=== PATIENT | male | born 1970 | race Hispanic/Latino ===

== ENCOUNTER 2018-02-03 15:40 | Emergency (ER) | payer OTHER ==
[2018-02-03] MEDS ORDERED: HYDROCODONE/APAP 5/325 MG TAB ONE (16:15)
--- NOTE | 2018-02-03 17:31 | ER ---
Nurse's Notes [facility] Name: Glenroy Kang Age: 47 yrs Sex: Male : 1970 Arrival Date: 02/03/2018 Time: 15:43 Bed 19 Private MD: None, None Diagnosis: Pain in left knee;Pain in right knee Presentation: 02/03 15:45 Presenting complaint: Patient states: couple of night ago, i started feeling pain on hj both my legs, more on the back of my knees, my doctor told me to come to the ED to check for blood clot; reports recent back surgery last December 2017; denies SOB;. Transition of care: patient was not received from another setting of care. Onset of symptoms was February 03, 2018. Risk Assessment: Do you want to hurt yourself or someone else? Patient reports no desire to harm self or others. Initial Sepsis Screen: Does the patient meet any 2 criteria? No. Patient's initial sepsis screen is negative. Does the patient have a suspected source of infection? No. Patient's initial sepsis screen is negative. Care prior to arrival: None. 15:45 Method Of Arrival: Ambulatory 15:45 Acuity: RICH 4 hj Triage Assessment: 15:49 General: Appears in no apparent distress. uncomfortable, Behavior is calm, cooperative, hj appropriate for age. Pain: Complains of pain in right leg and left leg Pain currently is 6 out of 10 on a pain scale. Historical: - Allergies: 15:49 No Known Allergies; hj - Home Meds: 15:49 metaxalone 800 mg oral tab 1 tab 3-4 times daily [Active]; acetaminophen-codeine 300-30 hj mg Oral tab 1 tab every 6 hours [Active]; - PMHx: 15:49 Kidney stones; hj - PSHx: 15:49 back surgery; hj - Immunization history:: Adult Immunizations up to date. - Social history:: Smoking status: Patient uses tobacco products, smokes one-half pack cigarettes per day, Patient/guardian denies using alcohol. - Ebola Screening: : Patient negative for fever greater than or equal to 101.5 degrees Fahrenheit, and additional compatible Ebola Virus Disease symptoms Patient denies exposure to infectious person Patient denies travel to an Ebola-affected area in the 21 days before illness onset. Screenin:49 Abuse screen: Denies threats or abuse. Denies injuries from another. Nutritional hj screening: No deficits noted. Tuberculosis screening: No symptoms or risk factors identified. Fall Risk None identified. Assessment: 15:56 General: Appears uncomfortable, Behavior is calm, cooperative. Pain: Complains of pain mg2 in left leg and right leg Pain does not radiate. Pain currently is 6 out of 10 on a pain scale. Quality of pain is described as aching, Pain began 2-3 days ago. Is intermittent, Alleviated by rest, Aggravated by increased activity, Noted to be moaning. Neuro: Level of Consciousness is awake, alert, obeys commands, Oriented to person, place, time, situation. Cardiovascular: Capillary refill < 3 seconds Patient's skin is warm and dry. Respiratory: Airway is patent Respiratory effort is even, unlabored, Respiratory pattern is regular, symmetrical. GI: No signs and/or symptoms were reported involving the gastrointestinal system. : No signs and/or symptoms were reported regarding the genitourinary system. EENT: No signs and/or symptoms were reported regarding the EENT system. Derm: Skin is intact, Skin is pink, warm \T\ dry. normal. Musculoskeletal: Reports pain in left leg and right leg since 2 days. 16:30 Reassessment: Patient appears in no apparent distress at this time. Patient is alert, em oriented x 3, equal unlabored respirations, skin warm/dry/pink. request to take home medication Skelaxin 800 mg, DARIEL Shepard notified. 17:30 Reassessment: Patient appears in no apparent distress at this time. Patient is alert, em oriented x 3, equal unlabored respirations, skin warm/dry/pink. Patient states feeling better. Vital Signs: 15:50 BP 125 / 76; Pulse 82; Resp 18; Temp 97.8(O); Pulse Ox 98% on R/A; Weight 94.35 kg; Height 5 ft. 10 in. (177.80 cm); Pain 6/10; 16:50 BP 114 / 82; Pulse 71; Resp 18; Pulse Ox 99% on R/A; em 17:55 BP 109 / 68; Pulse 78; Resp 16; Pulse Ox 99% on R/A; Pain 3/10; em 15:50 Body Mass Index 29.84 (94.35 kg, 177.80 cm) ED Course: 15:43 Patient arrived in ED. mr 15:43 None, None is Private Physician. mr 15:47 Triage completed. hj 15:48 Gladys Bragg NP is PHCP. pm1 15:48 David Benson MD is Attending Physician. pm1 15:49 Arm band placed on left wrist. hj 15:50 Patient has correct armband on for positive identification. Bed in low position. Call light in reach. Side rails up X 1. 15:52 Irineo Adams LVN is Primary Nurse. em 16:47 Ultrasound completed. Patient tolerated well. Notified BOTTOM STEEP TENDER/PA gladys. sg3 17:32 No provider procedures requiring assistance completed. Patient did not have IV access em during this emergency room visit. Administered Medications: 16:24 Drug: [place] 5 mg-325 mg 1 tabs Route: PO; em 17:55 Follow up: Response: No adverse reaction; Pain is decreased em Outcome: 17:31 Discharge ordered by MD. pm1 17:59 Discharged to home ambulatory. em 17:59 Condition: good 17:59 Discharge instructions given to patient, Instructed on discharge instructions, follow up and referral plans. Demonstrated understanding of instructions, follow-up care. 18:00 Patient left the ED. em Signatures: Dispatcher [employer] EDMI Fbay Mancilla mr Irineo Adams LVN LVN em Karthik Vicente, HEATHER RN Gladys Bragg NP BOTTOM STEEP TENDER pm1 Kathryn Serna sg3 Chet Wills RN RN mg2 Corrections: (The following items were deleted from the chart) 17:02 17:02 In radiology for Extrem Venous W Compression Jordon+US.[email or web address]. EDMS sg3
--- NOTE | 2018-02-03 17:31 | EDPHYS ---
Physician Documentation [facility] Name: Glenroy Kang Age: 47 yrs Sex: Male : 1970 Arrival Date: 02/03/2018 Time: 15:43 Bed 19 Private MD: None, None ED Physician David Benson HPI: 02/03 16:11 This 47 yrs old Male presents to ER via Ambulatory with complaints of pm1 Bilateral Leg Pain. 16:11 The patient presents with pain. The complaints affect the posterior aspect of right pm1 knee and left knee. Context: The problem was sustained at home, resulted from an unknown cause, the patient can fully bear weight, the patient is able to ambulate, Problem is a result from a previous injury: No. Onset: The symptoms/episode began/occurred 2 day(s) ago. Modifying factors: The symptoms are alleviated by nothing. the symptoms are aggravated by movement. Associated signs and symptoms: Pertinent negatives calf tenderness, fever, numbness, swelling, tingling, weakness. Treatment prior to arrival includes: no previous treatment. Severity of symptoms: in the emergency department the symptoms are unchanged. The patient has not experienced similar symptoms in the past. Patient with back surgery on January 15, 2018. Patient with bilateral popliteal knee pain for the past two days. Patient contacted the surgeon and was told by the PA to report to the ER for ultrasound to rule out DVT. Historical: - Allergies: 15:49 No Known Allergies; hj - Home Meds: 15:49 metaxalone 800 mg oral tab 1 tab 3-4 times daily [Active]; acetaminophen-codeine 300-30 hj mg Oral tab 1 tab every 6 hours [Active]; - PMHx: 15:49 Kidney stones; hj - PSHx: 15:49 back surgery; hj - Immunization history:: Adult Immunizations up to date. - Social history:: Smoking status: Patient uses tobacco products, smokes one-half pack cigarettes per day, Patient/guardian denies using alcohol. - Ebola Screening: : Patient negative for fever greater than or equal to 101.5 degrees Fahrenheit, and additional compatible Ebola Virus Disease symptoms Patient denies exposure to infectious person Patient denies travel to an Ebola-affected area in the 21 days before illness onset. ROS: 16:11 Constitutional: Negative for fever, chills, and weight loss, Eyes: Negative for injury, pm1 pain, redness, and discharge, ENT: Negative for injury, pain, and discharge, Neck: Negative for injury, pain, and swelling, Cardiovascular: Negative for chest pain, palpitations, and edema, Respiratory: Negative for shortness of breath, cough, wheezing, and pleuritic chest pain, Abdomen/GI: Negative for abdominal pain, nausea, vomiting, diarrhea, and constipation. 16:11 Back: Negative for injury. Positive for post surgical pain, : Negative for injury, bleeding, discharge, and swelling. 16:11 Skin: Negative for injury, rash, and discoloration, Neuro: Negative for headache, weakness, numbness, tingling, and seizure. 16:11 MS/extremity: Positive for pain, of the posterior aspect of right knee and left knee, Negative for decreased range of motion, deformity. Exam: 16:15 Constitutional: This is a well developed, well nourished patient who is awake, alert, pm1 and in no acute distress. Head/Face: Normocephalic, atraumatic. Eyes: Pupils equal round and reactive to light, extra-ocular motions intact. Lids and lashes normal. Conjunctiva and sclera are non-icteric and not injected. Cornea within normal limits. Periorbital areas with no swelling, redness, or edema. ENT: Nares patent. No nasal discharge, no septal abnormalities noted. Tympanic membranes are normal and external auditory canals are clear. Oropharynx with no redness, swelling, or masses, exudates, or evidence of obstruction, uvula midline. Mucous membranes moist. Neck: Trachea midline, no thyromegaly or masses palpated, and no cervical lymphadenopathy. Supple, full range of motion without nuchal rigidity, or vertebral point tenderness. No Meningismus. Chest/axilla: Normal chest wall appearance and motion. Nontender with no deformity. No lesions are appreciated. Cardiovascular: Regular rate and rhythm with a normal S1 and S2. No gallops, murmurs, or rubs. No pulse deficits. Respiratory: Lungs have equal breath sounds bilaterally, clear to auscultation and percussion. No rales, rhonchi or wheezes noted. No increased work of breathing, no retractions or nasal flaring. Abdomen/GI: Soft, non-tender, with normal bowel sounds. No distension or tympany. No guarding or rebound. No evidence of tenderness throughout. Back: No spinal tenderness. No costovertebral tenderness. Full range of motion. Skin: Warm, dry with normal turgor. Normal color with no rashes, no lesions, and no evidence of cellulitis. MS/ Extremity: Pulses equal, no cyanosis. Neurovascular intact. Full, normal range of motion. 16:15 Neuro: Orientation: is normal, Motor: moves all fours, strength is normal, strength is 5/5 in all extremities, Sensation: is normal, no obvious gross deficits, Babinski testing is normal, bilaterally. Vital Signs: 15:50 BP 125 / 76; Pulse 82; Resp 18; Temp 97.8(O); Pulse Ox 98% on R/A; Weight 94.35 kg; hj Height 5 ft. 10 in. (177.80 cm); Pain 6/10; 16:50 BP 114 / 82; Pulse 71; Resp 18; Pulse Ox 99% on R/A; em 17:55 BP 109 / 68; Pulse 78; Resp 16; Pulse Ox 99% on R/A; Pain 3/10; em 15:50 Body Mass Index 29.84 (94.35 kg, 177.80 cm) hj MDM: 15:51 Patient medically screened. pm1 17:24 Data reviewed: vital signs. Data interpreted: Pulse oximetry: on room air is 98 %. pm1 Interpretation: normal. Counseling: I had a detailed discussion with the patient and/or guardian regarding: the historical points, exam findings, and any diagnostic results supporting the discharge/admit diagnosis, radiology results, the need for outpatient follow up, to return to the emergency department if symptoms worsen or persist or if there are any questions or concerns that arise at home. 17:24 ED course: U/S negative for DVT. Patient's bilateral knee pain improved with pm1 medications given in the ER. Patient currently not taking his Skelaxin and Tylenol #3 as directed. He is taking less. Primarily concerned about getting dependent on the medications. 02/03 15:56 Order name: Extrem Venous W Compression Jordon US; Complete Time: 17:51 pm1 Administered Medications: 16:24 Drug: [place] 5 mg-325 mg 1 tabs Route: PO; em 17:55 Follow up: Response: No adverse reaction; Pain is decreased em Disposition: 02/03/18 17:31 Discharged to Home. Impression: Pain in left knee, Pain in right knee. - Condition is Stable. - Discharge Instructions: Knee Pain. - Medication Reconciliation Form, Thank You Letter, Prescription Opioid Use form. - Follow up: Emergency Department; When: As needed; Reason: Worsening of condition. Follow up: Private Physician; When: 2 - 3 days; Reason: Recheck today's complaints, Continuance of care, Re-evaluation by your physician. - Problem is new. - Symptoms have improved. Addendum: 02/05/2018 09:22 Co-signature as Attending Physician, David Benson MD I agree with the assessment and c laird plan of care. Signatures: Dispatcher [employer] EDTX David Benson MD MD cha Munoz, Edgar, REEL OPERATOR REEL OPERATOR Karthik Reed, RN RN Devyn Best, GOLD RECLAIMER GOLD RECLAIMER pm1 Corrections: (The following items were deleted from the chart) 02/03 18:00 17:31 02/03/2018 17:31 Discharged to Home. Impression: Pain in left knee; Pain in right em knee. Condition is Stable. Forms are Medication Reconciliation Form, Thank You Letter, Antibiotic Education, Prescription Opioid Use. Follow up: Emergency Department; When: As needed; Reason: Worsening of condition. Follow up: Private Physician; When: 2 - 3 days; Reason: Recheck today's complaints, Continuance of care, Re-evaluation by your physician. Problem is new. Symptoms have improved. pm1
--- NOTE | 2018-02-03 17:48 | RAD REPORT ---
EXAM DESCRIPTION: VASExtrem Venous W Compress Bil02/03/2018 5:02 pm CLINICAL HISTORY: Bilateral leg pain COMPARISON: none FINDINGS: The common femoral, superficial femoral, popliteal and posterior tibial veins bilaterally are compressible and demonstrate augmentation. Doppler demonstrates good flow. IMPRESSION: No evidence of deep venous thrombosis involving either lower extremity.
== END 2018-02-03 18:00 | disposition home or self-care (01) ==
LOC: ER 15:40
DX: M25.561 Pain in right knee (principal); F17.210 Nicotine dependence, cigarettes, uncomplicated
CPT/HCPCS: 93970; 99283

== ENCOUNTER 2018-08-26 22:02 | Observation (INO) | payer OTHER, SELFPAY ==
[2018-08-26 23:05] LABS: Absolute Lymphocytes (CBC) 2.8 K/uL (0.7-4.9); Absolute Monocytes 0.9 K/uL (0.1-1.3); Absolute Neutrophil 4.4 K/uL (1.8-8.0); Basophils % 1.2 % (0-1.3); Eosinophils % 3.2 % (0-4.4); Hematocrit 46.3 % (39.6-49.0); Lymphocytes % 32.9 % (15.3-44.8); MPV 9.3 fL (7.6-11.3); Monocytes % 10.7 % (3.3-12.3); RBC Red Blood Cell Count 5.23 M/uL (4.33-5.43)
[2018-08-26 23:09] LABS: Protime INR 0.97
[2018-08-26] MEDS ORDERED: ONDANSETRON 4 MG/2 ML VIAL ONE (23:09)
[2018-08-26] MEDS ORDERED: FENTANYL CITR 100 MCG/2 ML ONE (23:09)
[2018-08-26] MEDS ORDERED: FAMOTIDINE 20 MG/2 ML VIAL IV ONE (23:10)
[2018-08-26] MEDS ORDERED: NA CHLORIDE 0.9% 1,000 ML ONE (23:10)
[2018-08-26 23:23] LABS: ALT/SGPT 100 U/L (12-78); AST/SGOT 46 U/L (15-37); Albumin 3.7 g/dL (3.4-5.0); Alkaline Phosphatase 127 U/L (45-117); BUN Blood Urea Nitrogen 14 mg/dL (7-18); Bicarbonate 28 mmol/L (21-32); Bilirubin Direct 0.3 mg/dL (0-0.2); Bilirubin Total 0.7 mg/dL (0.2-1.0); Glucose Level 107 mg/dL (74-106); Lipase 177 U/L (73-393); NT PRO-BNP 19 pg/mL (<125); Potassium 3.8 mmol/L (3.5-5.1); Protein, Total 7.2 g/dL (6.4-8.2); Sodium Level 143 mmol/L (136-145); Troponin (Emerg Dept Use Only) < 0.02 ng/mL (0.0-0.045)
--- NOTE | 2018-08-27 00:05 | ER ---
Nurse's Notes [facility] Name: Glenroy Kang Age: 48 yrs Sex: Male : 1970 Arrival Date: 08/26/2018 Time: 22:05 Bed 5 Private MD: Diagnosis: Other chest pain;Cholelithiasis;Cholecystitis Presentation: 08/26 22:05 Presenting complaint: Patient states: that he was eating a sandwich from [facility] and then started to have epigastric pain and sharp chest pain along with nausea, vomiting and shortness of breath. Transition of care: patient was not received from another setting of care. Onset of symptoms was August 26, 2018 at 18:30. Risk Assessment: Do you want to hurt yourself or someone else? Patient reports no desire to harm self or others. Initial Sepsis Screen: Does the patient meet any 2 criteria? No. Patient's initial sepsis screen is negative. Does the patient have a suspected source of infection? No. Patient's initial sepsis screen is negative. Care prior to arrival: None. 22:05 Method Of Arrival: Wheelchair 22:05 Acuity: RICH 3 Historical: - Allergies: 22:25 No Known Allergies; - Home Meds: 22:25 None [Active]; fc - PMHx: 22:25 Kidney stones; - PSHx: 22:25 back surg; - Immunization history:: Last tetanus immunization: up to date Flu vaccine is not up to date. - Social history:: Smoking status: Patient uses tobacco products, cigars, Patient/guardian denies using alcohol, street drugs. - Ebola Screening: : Patient negative for fever greater than or equal to 101.5 degrees Fahrenheit, and additional compatible Ebola Virus Disease symptoms Patient denies exposure to infectious person Patient denies travel to an Ebola-affected area in the 21 days before illness onset. - Family history:: not pertinent. Screenin:24 Abuse screen: Denies threats or abuse. Nutritional screening: No deficits noted. Tuberculosis screening: No symptoms or risk factors identified. Fall Risk None identified. Assessment: 23:30 Reassessment: Patient appears in no apparent distress at this time. Patient and/or aa1 family updated on plan of care and expected duration. Pain level reassessed. Patient is alert, oriented x 3, equal unlabored respirations, skin warm/dry/pink. Pt awaiting CT scan. 08/27 00:35 Reassessment: Patient appears in no apparent distress at this time. Patient and/or aa1 family updated on plan of care and expected duration. Pain level reassessed. Patient is alert, oriented x 3, equal unlabored respirations, skin warm/dry/pink. Pt taken to CT at this time. 01:55 Reassessment: Patient appears in no apparent distress at this time. Patient is alert, aa1 oriented x 3, equal unlabored respirations, skin warm/dry/pink. Report given to Linda Munoz LVN. Vital Signs: 08/26 22:05 BP 112 / 61; Pulse 51; Resp 18; Temp 97.5(O); Pulse Ox 100% on R/A; Weight 95.25 kg fc (R); Height 5 ft. 10 in. (177.80 cm) (R); Pain 9/10; 23:00 BP 118 / 66; Pulse 55; Resp 18; Pulse Ox 99% on R/A; aa1 23:41 BP 111 / 58; Pulse 64; Resp 18; Pulse Ox 97% on R/A; aa1 08/27 00:15 BP 105 / 63; Pulse 63; Resp 18; Pulse Ox 99% on R/A; aa1 01:30 BP 104 / 64; Pulse 68; Resp 16; Temp 97.9; Pulse Ox 98% on R/A; Pain 5/10; aa1 08/26 22:05 Body Mass Index 30.13 (95.25 kg, 177.80 cm) fc ED Course: 08/26 22:05 Patient arrived in ED. es 22:05 Arm band placed on Patient placed in an exam room, on a stretcher. fc 22:23 Triage completed. fc 22:24 Patient has correct armband on for positive identification. Placed in gown. Bed in low fc position. Call light in reach. conveyor monitor on. Pulse ox on. NIBP on. 22:24 EKG done, by ED staff, reviewed by David Benson MD. fc 22:30 Initial lab(s) drawn, by ED staff, sent to lab. Inserted saline lock: 20 gauge in right aa1 antecubital area, using aseptic technique. ,using aseptic technique. by berta Valdes. 22:40 David Benson MD is Attending Physician. elana 22:41 Mary Ruth, HEATHER is Primary Nurse. aa1 22:55 XRAY Chest (1 view) In Process Unspecified. EDMS 23:14 US Abdomen Limited In Process Unspecified. EDMS 23:15 Ultrasound completed. Patient tolerated well. Notified ED Physician bandar. sg3 08/27 00:02 Belem Preciado MD is Hospitalizing Provider. elana 00:[address] via stretcher. kw1 00:47 CT completed. Patient tolerated procedure well. Patient moved back from CT. kw1 00:47 CT Abd/Pelvis - W/Contrast In Process Unspecified. EDMS 01:49 No provider procedures requiring assistance completed. Patient admitted, IV remains in aa1 place. Administered Medications: 08/26 23:07 Drug: Zofran 4 mg Route: IVP; Site: right antecubital; ed1 08/27 00:00 Follow up: Response: No adverse reaction; Nausea is decreased aa1 08/26 23:07 Drug: NS 0.9% 1000 ml Route: IV; Rate: 1 bolus; Site: right antecubital; ed1 08/27 00:00 Follow up: IV Status: Completed infusion aa1 08/26 23:08 Drug: Pepcid 20 mg Route: IVP; Site: right antecubital; ed1 08/27 00:00 Follow up: Response: No adverse reaction; Pain is decreased aa1 08/26 23:08 Drug: fentaNYL (PF) 50 mcg Route: IVP; Site: right antecubital; ed1 08/27 00:00 Follow up: Response: No adverse reaction; Pain is decreased aa1 01:20 Drug: Zosyn 3.375 grams Route: IVPB; Infused Over: 60 mins; Site: right antecubital; aa1 02:05 Follow up: IV Status: Infusion continued upon admission aa1 02:06 Drug: Flagyl 500 mg Volume: 100 ml; Route: IVPB; Rate: 200 ml/hr; Infused Over: 30 aa1 mins; Site: right antecubital; 02:07 Follow up: IV Status: Infusion continued upon admission aa1 Outcome: 00:03 Decision to Hospitalize by Provider. elana 02:09 Admitted to Med/surg accompanied by nurse, family with patient, via wheelchair, room aa1 208, with chart, Report called to Linda Munoz LVN 02:09 Condition: stable 02:09 Discharge instructions given to patient, family, Instructed on the need for admit, Demonstrated understanding of instructions. 02:10 Patient left the ED. aa1 Signatures: Dispatcher [employer] Mary Segovia, RN RN aa1 David Benson MD MD cha Salyer, Edna es Chretien, Felicia, RN RN fc Riggs, Erika, RN RN ed1 Elisha Arreola [facility] Kathryn Serna 3
--- NOTE | 2018-08-27 00:06 | EDPHYS ---
Physician Documentation [facility] Name: Glenroy Kang Age: 48 yrs Sex: Male : 1970 Arrival Date: 08/26/2018 Time: 22:05 Bed 5 Private MD: ED Physician David Benson HPI: 08/26 22:51 This 48 yrs old Male presents to ER via Wheelchair with complaints of elana Abdominal Pain, Chest Pain, Vomiting. 22:51 The patient or guardian reports chest pain that is located primarily in the substernal elana area, anterior chest wall. Historical: - Allergies: 22:25 No Known Allergies; fc - Home Meds: 22:25 None [Active]; fc - PMHx: 22:25 Kidney stones; fc - PSHx: 22:25 back surg; fc - Immunization history:: Last tetanus immunization: up to date Flu vaccine is not up to date. - Social history:: Smoking status: Patient uses tobacco products, cigars, Patient/guardian denies using alcohol, street drugs. - Ebola Screening: : Patient negative for fever greater than or equal to 101.5 degrees Fahrenheit, and additional compatible Ebola Virus Disease symptoms Patient denies exposure to infectious person Patient denies travel to an Ebola-affected area in the 21 days before illness onset. - Family history:: not pertinent. ROS: 22:52 Constitutional: Negative for fever, chills, and weight loss, Eyes: Negative for injury, elana pain, redness, and discharge, ENT: Negative for injury, pain, and discharge, Neck: Negative for injury, pain, and swelling, Respiratory: Negative for shortness of breath, cough, wheezing, and pleuritic chest pain, Back: Negative for injury and pain, : Negative for injury, bleeding, discharge, and swelling, MS/Extremity: Negative for injury and deformity, Skin: Negative for injury, rash, and discoloration, Neuro: Negative for headache, weakness, numbness, tingling, and seizure. 22:52 Cardiovascular: Positive for chest pain. 22:52 Abdomen/GI: Positive for abdominal pain, of the right upper quadrant. Exam: 22:52 Constitutional: This is a well developed, well nourished patient who is awake, alert, elana and in no acute distress. Head/Face: Normocephalic, atraumatic. Eyes: Pupils equal round and reactive to light, extra-ocular motions intact. Lids and lashes normal. Conjunctiva and sclera are non-icteric and not injected. Cornea within normal limits. Periorbital areas with no swelling, redness, or edema. ENT: Nares patent. No nasal discharge, no septal abnormalities noted. Tympanic membranes are normal and external auditory canals are clear. Oropharynx with no redness, swelling, or masses, exudates, or evidence of obstruction, uvula midline. Mucous membranes moist. Neck: Trachea midline, no thyromegaly or masses palpated, and no cervical lymphadenopathy. Supple, full range of motion without nuchal rigidity, or vertebral point tenderness. No Meningismus. Chest/axilla: Normal chest wall appearance and motion. Nontender with no deformity. No lesions are appreciated. Cardiovascular: Regular rate and rhythm with a normal S1 and S2. No gallops, murmurs, or rubs. Normal PMI, no JVD. No pulse deficits. Respiratory: Lungs have equal breath sounds bilaterally, clear to auscultation and percussion. No rales, rhonchi or wheezes noted. No increased work of breathing, no retractions or nasal flaring. Back: No spinal tenderness. No costovertebral tenderness. Full range of motion. Male : Normal genitalia with no discharge or lesions. Skin: Warm, dry with normal turgor. Normal color with no rashes, no lesions, and no evidence of cellulitis. MS/ Extremity: Pulses equal, no cyanosis. Neurovascular intact. Full, normal range of motion. Neuro: Awake and alert, GCS 15, oriented to person, place, time, and situation. Cranial nerves II-XII grossly intact. Motor strength 5/5 in all extremities. Sensory grossly intact. Cerebellar exam normal. Normal gait. Psych: Awake, alert, with orientation to person, place and time. Behavior, mood, and affect are within normal limits. 22:52 Abdomen/GI: Inspection: abdomen appears normal, Bowel sounds: normal, Palpation: mild abdominal tenderness, in the right upper quadrant, Liver: no appreciated palpable abnormalities, Hernia: not appreciated. Vital Signs: 22:05 BP 112 / 61; Pulse 51; Resp 18; Temp 97.5(O); Pulse Ox 100% on R/A; Weight 95.25 kg fc (R); Height 5 ft. 10 in. (177.80 cm) (R); Pain 9/10; 23:00 BP 118 / 66; Pulse 55; Resp 18; Pulse Ox 99% on R/A; aa1 23:41 BP 111 / 58; Pulse 64; Resp 18; Pulse Ox 97% on R/A; aa1 08/27 00:15 BP 105 / 63; Pulse 63; Resp 18; Pulse Ox 99% on R/A; aa1 01:30 BP 104 / 64; Pulse 68; Resp 16; Temp 97.9; Pulse Ox 98% on R/A; Pain 5/10; aa1 08/26 22:05 Body Mass Index 30.13 (95.25 kg, 177.80 cm) [facility]: 08/26 22:40 Patient medically screened. [facility] 22:52 Data reviewed: vital signs, nurses notes, lab test result(s), EKG, radiologic studies, [facility] plain films, ultrasound. 08/26 22:35 Order name: Basic Metabolic Panel; Complete Time: 23:58 08/26 22:35 Order name: CBC with Diff; Complete Time: 23:58 08/26 22:35 Order name: LFT's; Complete Time: 23:58 08/26 22:35 Order name: Magnesium; Complete Time: 23:58 08/26 22:35 Order name: NT PRO-BNP; Complete Time: 23:58 08/26 22:35 Order name: PT-INR; Complete Time: 23:58 08/26 22:35 Order name: Troponin (emerg Dept Use Only); Complete Time: 23:58 08/26 22:35 Order name: XRAY Chest (1 view) 08/26 22:51 Order name: US Abdomen Limited [facility] 08/26 22:54 Order name: CT Abd/Pelvis - W/Contrast [facility] 08/26 23:03 Order name: Lipase; Complete Time: 23:58 EDMS 08/26 22:35 Order name: EKG; Complete Time: 22:36 08/26 22:35 Order name: Cardiac monitoring; Complete Time: 22:35 08/26 22:35 Order name: EKG - Nurse/Tech; Complete Time: 22:35 08/26 22:35 Order name: IV Saline Lock; Complete Time: 22:35 08/26 22:35 Order name: Labs collected and sent; Complete Time: 22:56 08/26 22:35 Order name: O2 Per Protocol; Complete Time: 22:35 08/26 22:35 Order name: O2 Sat Monitoring; Complete Time: 22:35 Administered Medications: 23:07 Drug: Zofran 4 mg Route: IVP; Site: right antecubital; ed1 08/27 00:00 Follow up: Response: No adverse reaction; Nausea is decreased aa1 08/26 23:07 Drug: NS 0.9% 1000 ml Route: IV; Rate: 1 bolus; Site: right antecubital; ed1 08/27 00:00 Follow up: IV Status: Completed infusion aa1 08/26 23:08 Drug: Pepcid 20 mg Route: IVP; Site: right antecubital; ed1 08/27 00:00 Follow up: Response: No adverse reaction; Pain is decreased aa1 08/26 23:08 Drug: fentaNYL (PF) 50 mcg Route: IVP; Site: right antecubital; ed1 08/27 00:00 Follow up: Response: No adverse reaction; Pain is decreased aa1 01:20 Drug: Zosyn 3.375 grams Route: IVPB; Infused Over: 60 mins; Site: right antecubital; aa1 02:05 Follow up: IV Status: Infusion continued upon admission aa1 02:06 Drug: Flagyl 500 mg Volume: 100 ml; Route: IVPB; Rate: 200 ml/hr; Infused Over: 30 aa1 mins; Site: right antecubital; 02:07 Follow up: IV Status: Infusion continued upon admission aa1 Disposition: 08/27/18 00:03 Hospitalization ordered by Belem Preciado for Observation. Preliminary diagnosis are Other chest pain, Cholelithiasis, Cholecystitis. - Bed requested for Telemetry/MedSurg (observation). - Status is Observation. aa1 - Condition is Fair. - Problem is new. - Symptoms have improved. UTI on Admission? No Signatures: Dispatcher [employer] EDMS Elisha uRcker RN RN kl Kern, Alissa, RN RN aa1 David Benson MD MD cha Chretien, Felicia, RN RN Lexi Valdez RN RN ed1 Corrections: (The following items were deleted from the chart) 08/26 23:03 22:51 LIPASE+C.LAB.BRZ ordered. EDMS EDMS 08/27 01:10 00:03 Hospitalization Ordered by Belem Preciado MD for Observation. Preliminary kl diagnosis is Other chest pain; Cholelithiasis; Cholecystitis. Bed requested for Telemetry/MedSurg (observation). Status is Observation. Condition is Fair. Problem is new. Symptoms have improved. UTI on Admission? No. elana 02:10 01:10 08/27/2018 00:03 Hospitalization Ordered by Belem Preciado MD for Observation. aa1 Preliminary diagnosis is Other chest pain; Cholelithiasis; Cholecystitis. Bed requested for Telemetry/MedSurg (observation). Status is Observation. Condition is Fair. Problem is new. Symptoms have improved. UTI on Admission? No. kl
[2018-08-27] MEDS ORDERED: PIPER/TAZO/NS 3.375gm 3.375 GM/100 ML BAG ONE (00:58)
--- NOTE | 2018-08-27 01:22 | P.HP ---
Certification for Inpatient Patient admitted to: Observation With expected LOS: <2 Midnights Practitioner: I am a practitioner with admitting privileges, knowledge of patient current condition, hospital course, and medical plan of care. Services: Services provided to patient in accordance with Admission requirements found in Title 42 Section 412.3 of the Code of Federal Regulations Patient History Date of Service: 08/27/18 Reason for admission: symptomatic cholelithiasis History of Present Illness: Mr Kang is a 48 years old male who start with abdominal pain this afternoon. The pain is localized on epigastric area, radiated to RUQ. Intensity of the pain was 10/10. It was associated with nausea and vomiting, no diarrhea. The patient denied fever but has had chills. Lab work shows elevated transaminases and alk phos. WBC count within normal limits. US abdomen shows multiple gallstone, awaiting formal report. CA abd/pelvis in process. Allergies No Known Allergies Allergy (Unverified 04/26/16 16:49) Home medications list reviewed: Yes - Past Medical/Surgical History Past Medical History: Reviewed- Non-Contributory -: back surgery - Family History Family History: Reviewed- Non-Contributory - Social History Counseled patient to stop smoking for: less than 10 minutes Alcohol use: No CD- Drugs: No Place of Residence: Home Review of Systems 10-point ROS is otherwise unremarkable Physical Examination - Physical Exam General: Alert, In no apparent distress HEENT: Atraumatic, PERRLA, Mucous membr. moist/pink, EOMI, Sclerae nonicteric Neck: Supple, 2+ carotid pulse no bruit, No LAD, Without JVD or thyroid abnormality Respiratory: Clear to auscultation bilaterally, Normal air movement Cardiovascular: Regular rate/rhythm, Normal S1 S2 Gastrointestinal: Normal bowel sounds, Tenderness (RUQ) Musculoskeletal: No tenderness Integumentary: No rashes Neurological: Normal speech, Normal strength at 5/5 x4 extr, Normal tone, Normal affect Lymphatics: No axilla or inguinal lymphadenopathy - Studies Laboratory Data (last 24 hrs) 08/26/18 22:51: Lipase Cancelled 08/26/18 22:25: PT 11.4, INR 0.97 08/26/18 22:25: WBC 8.4, Hgb 15.5, Hct 46.3, Plt Count 213 08/26/18 22:25: Sodium 143, Potassium 3.8, BUN 14, Creatinine 1.28, Glucose 107 H, Magnesium 2.0, Total Bilirubin 0.7, AST 46 H, ALT 100 H, Alkaline Phosphatase 127 H, Lipase 177 Assessment and Plan - Problems (Diagnosis) (1) Symptomatic cholelithiasis Current Visit: Yes Status: Acute (2) Tobacco abuse Current Visit: Yes Status: Acute - Plan Will admit the patient to the hospital due to symptomatic cholelithiasis. Will order IV fluids, pain medication, consult Surgery team. - Advance Directives Does patient have a Living Will: No Does patient have a Durable POA for Healthcare: No - Code Status/Comfort Care Code Status Assessed: Yes Code Status: Full Code
[2018-08-27] MEDS ORDERED: ACETAMINOPHEN 500 MG TAB PO PRN (02:03)
[2018-08-27] MEDS ORDERED: ONDANSETRON 4 MG/2 ML VIAL IV PRN (02:03)
[2018-08-27] MEDS ORDERED: METRONIDAZOLE 500mg IVPB 500 MG/100 ML BAG IV ONE (02:09)
[2018-08-27 02:29] VITALS: BMI 32.0
[2018-08-27] MEDS: NA CHLORIDE 0.9% 1,000 ML IV SCH ×3 (03:22→22:49)
--- NOTE | 2018-08-27 07:58 | EKG ---
Test Date: 2018-08-26 Test Time: 22:13:31 Senior Editor: PAUL MEASUREMENT RESULTS: Intervals: Rate: 47 UT: 164 QRSD: 88 QT: 424 QTc: 375 [place]: P: 40 UT: 164 QRS: 81 T: 58 INTERPRETIVE STATEMENTS: Sinus bradycardia Otherwise normal ECG Compared to ECG 12/06/2013 08:50:01 Sinus rhythm no longer present Electronically Signed On 08-27-18 07:53:00 [employer]ULES PRINTING MACHINE OPERATOR by Rito Villavicencio
--- NOTE | 2018-08-27 08:48 | RAD REPORT ---
EXAM DESCRIPTION: CTAbdomen Pelvis W Contrast - 08/27/2018 3:20 am CLINICAL HISTORY: Abdominal pain. ABD PAIN COMPARISON: Abdomen Exam Limited dated 08/26/2018; Stone Protocol dated 04/26/2016 TECHNIQUE: Biphasic CT imaging of the abdomen and pelvis was performed with 100 ml non-ionic IV cont rast. All CT scans are performed using dose optimization technique as appropriate and may include automated exposure control or mA/KV adjustment according to patient size. FINDINGS: Mild linear subsegmental atelectasis is present. Mild diffuse fatty liver. The gallbladder contains multiple gallstones. Mild pericholecystic fluid xie spected. The spleen, pancreas, adrenal glands and kidneys show no acute process. Several renal cysts are present bilaterally. No bowel obstruction, free air, free fluid or abscess. Small pericolonic area of inflammation seen ad jacent to the descending colon probably represents epiploic appendagitis. The appendix is normal. No evidence of significant lymphadenopathy. Hardware is present in the lumbar spine. IMPRESSION: Cholelithiasis is noted with a small amount of pericholecystic fluid likely present. Ult rasound correlation would be advised. Small focus of epiploic appendagitis probably present adjacent to the descending colon.
[2018-08-27] MEDS: METRONIDAZOLE 500mg IVPB 500 MG/100 ML BAG IV SCH ×2 (08:52→16:34)
[2018-08-27] MEDS: CIPROFLOXACIN 400mg IV 400 MG/200 ML BAG IV SCH ×2 (08:53→20:52)
--- NOTE | 2018-08-27 08:55 | RAD REPORT ---
EXAM DESCRIPTION: US - Abdomen Exam Limited - 08/26/2018 11:13 pm CLINICAL HISTORY: ABD PAIN COMPARISON: No comparisons FINDINGS: The gallbladder demonstrates several shadowing gallstones along with gallbladder sludge. N o pericholecystic fluid or gallbladder wall thickening. The common bile duct is normal measuring 3 mm . The liver demonstrates no findings of intrahepatic biliary dilatation. IMPRESSION: Cholelithiasis with areas of gallbladder sludge also present. No convincing evidence of acute cholecystitis. HIDA scan could be performed if further workup for acute cholecystitis is neede d clinically.
--- NOTE | 2018-08-27 08:56 | RAD REPORT ---
EXAM DESCRIPTION: RAD - Chest Single View - 08/26/2018 10:57 pm CLINICAL HISTORY: CHEST PAIN Chest pain. COMPARISON: CHEST SINGLE VIEW dated 12/06/2013; Abdomen Pelvis W Contrast dated 08/27/2018 FINDINGS: Portable technique limits examination quality. Mild linear subsegmental atelectasis is present left lung base. The lungs are otherwise clear of acut e infiltrate. The heart is normal in size. No displaced fractures. IMPRESSION: No acute intrathoracic process suspected.
--- NOTE | 2018-08-27 12:39 | RAD REPORT ---
EXAM DESCRIPTION: MRI - Cholangiogram - 08/27/2018 12:28 pm CLINICAL HISTORY: Cholelithiasis COMPARISON: Abdomen Pelvis W Contrast dated 08/27/2018; Chest Single View dated 08/26/2018 FINDINGS: Three-dimensional MRCP was performed using maximum intensity projection reconstruction on the same work station. No intrahepatic biliary tree dilatation is seen. The common bile duct is normal caliber without evide nce of retained stone, stricture or mass. The pancreatic duct is not pathologically dilated. Cholelithiasis is present. Small amount of pericholecystic fluid is suspected. Limited T2 sequences through the abdomen demonstrates no bulky adenopathy, significant free fluid or abscess. Small renal cysts are present. IMPRESSION: Cholelithiasis with small amount pericholecystic fluid seen. No pathologic dilatation of the biliary tree.
--- NOTE | 2018-08-27 14:03 | CON ---
Date of Consultation: 08/27/2018 Reason: Abdominal pain. History Of Present Illness: The patient is a 48-year-old gentleman who comes in with biliary colic w ith pain in the epigastrium, right upper quadrant, going to the back, associated with nausea and vomi ting. He had a similar episode last week when he was in [place]. He has had milder episodes in the past. However, yesterday, the pain became very severe, he came to the ER and workup was done. He de nies any diarrhea, constipation, blood in his stools, dysuria or hematuria, sore throat, runny nose, cough, headaches, or dizziness. No chest pain. No fever or chills. Review of Systems: Otherwise unremarkable. Past Medical History: Significant for chronic back pain. Past Surgical History: Back surgery through an anterior approach. Allergies: NONE. Social History: The patient smokes occasionally. He has been counseled by the PCP. He denies drink ing. Family History: Noncontributory. Physical Examination: Vital Signs: Stable. He is afebrile. General: He is awake, alert, and oriented x3. Head and Neck: Cranial nerves 2 through 12 grossly within normal limit. No neck masses. No JVD. T hroat is clear. Neck is supple. There is no evidence of icterus. Chest: Clear. Heart: S1 and S2. Abdomen: Soft and nondistended. Positive bowel sounds. Positive mid epigastrium tenderness and rig ht upper quadrant tenderness. No rebound, rigidity, or guarding. Extremities: Adequately perfused. Nontender. Neurologic: Nonfocal. Laboratory Data: His white count is 8.4, there is no left shift. INR is within normal limit. Chemi stry reveals his AST to be slightly elevated at 46, ALT slightly elevated at 100, alkaline phosphatas e is elevated at 127, lipase is 177. The patient had an ultrasound and an abdomen and pelvis CT, randy ws cholelithiasis with areas of gallbladder sludge present, no convincing evidence of acute cholecyst itis. CT of the abdomen and pelvis shows cholelithiasis is noted with a small amount of pericholecys tic fluid likely present, ultrasound correlation should be advised, small focus of epiploic appendagi tis probably present adjacent to the descending colon. Assessment: A 48-year-old gentleman with acute cholecystitis, cholelithiasis, possible choledocholit hiasis. Recommendations: Admit, n.p.o., IV fluid, IV antibiotics. We will obtain an MRCP, should that be po sitive, then he will need an ERCP prior to proceeding with a lap lamont, possible open. The patient u nderstands the risks, benefits, and alternatives and agrees to procedure. He also understands the pl an of care. AZALEA/VLADISLAV Voice ID: [id number] Report ID: [id number]
[2018-08-28] MEDS: METRONIDAZOLE 500mg IVPB 500 MG/100 ML BAG IV SCH ×3 (00:12→16:32)
[2018-08-28 06:02] LABS: Absolute Monocytes 0.6 K/uL (0.1-1.3); Absolute Neutrophil 3.9 K/uL (1.8-8.0); Basophils % 1.2 % (0-1.3); Eosinophils % 2.9 % (0-4.4); Lymphocytes % 29.5 % (15.3-44.8); MPV 9.3 fL (7.6-11.3); RBC Red Blood Cell Count 5.12 M/uL (4.33-5.43)
[2018-08-28 06:18] LABS: Albumin 3.5 g/dL (3.4-5.0); Bilirubin Direct 0.2 mg/dL (0-0.2); Bilirubin Total 0.8 mg/dL (0.2-1.0); Potassium 3.9 mmol/L (3.5-5.1); Protein, Total 6.6 g/dL (6.4-8.2)
[2018-08-28] MEDS: NA CHLORIDE 0.9% 1,000 ML IV SCH (09:40)
[2018-08-28] MEDS: CIPROFLOXACIN 400mg IV 400 MG/200 ML BAG IV SCH (09:40)
[2018-08-28] MEDS ORDERED: PROPOFOL 200 MG/20 ML VIAL IV ONE (10:53)
[2018-08-28] MEDS ORDERED: FENTANYL CITR 100 MCG/2 ML ONE (10:53)
[2018-08-28] MEDS ORDERED: DEXAMETHASONE 10 MG/ML VIAL ONE (10:53)
[2018-08-28] MEDS ORDERED: LIDOCAINE 2% MPF 5 ML VIAL ONE (10:53)
[2018-08-28] MEDS ORDERED: MIDAZOLAM HCL 2 MG/2 ML INJ ONE (10:53)
[2018-08-28] MEDS ORDERED: ROCURONIUM 50 MG/5 ML VIAL IV ONE (10:54)
[2018-08-28] MEDS: BUPIVACAINE 0.25% PF 10 ML VIAL ONE ×2 (10:59→11:32)
--- NOTE | 2018-08-28 12:15 | P.OP ---
Mental Health Nurse Practitioner: Jameel RÍOS Preoperative diagnosis: Acute Cholecystitis and cholelithiasis Postoperative diagnosis: same Primary procedure: Lap Kaylee Anesthesia: gen Estimated blood loss: min Specimen: gb Findings: as above Complications: None Transferred to: Recovery Room Condition: Good
[2018-08-28] MEDS ORDERED: KETOROLAC 30 MG/ML INJ ONE (12:21)
[2018-08-28] MEDS ORDERED: MORPHINE 10 MG/ML VIAL ONE (12:24)
[2018-08-28] MEDS ORDERED: Ringers Lactate 1,000 ML IV ONE (12:27)
[2018-08-28] MEDS ORDERED: HYDROMORPHONE HCL 1 MG/ML INJ IV PRN (12:52)
[2018-08-28] MEDS ORDERED: HYDROCODONE/APAP 7.5/325 MG TAB PO PRN (12:52)
[2018-08-28 12:59] VITALS: O2SAT 97
--- NOTE | 2018-08-28 17:26 | P.DS ---
Admission Date: 08/27/18 Discharge Date: 08/29/18 Disposition: ROUTINE DISCHARGE Discharge Condition: GOOD Reason for Admission: symptomatic cholelithiasis Consultations: General Surgery Procedures: Laparoscopic cholecystectomy - Problems (1) Symptomatic cholelithiasis Onset Date: 08/28/18 Status: Acute (2) Tobacco abuse Onset Date: 08/28/18 Status: Acute Brief History of Present Illness: Mr Kang is a 48 years old male who start with abdominal pain this afternoon. The pain is localized on epigastric area, radiated to RUQ. Intensity of the pain was 10/10. It was associated with nausea and vomiting, no diarrhea. The patient denied fever but has had chills. Lab work shows elevated transaminases and alk phos. WBC count within normal limits. US abdomen shows multiple gallstone, awaiting formal report. CA abd/pelvis in process. Hospital Course: Overall during the hospital stay patient remained stable Patient was initially admitted to the hospital for symptomatic cholecystitis. Patient had MRCP done here to rule out choledocholithiasis. MRCP was negative for any was consulted who took the patient to the OR patient had laparoscopic cholecystectomy done. No complication was noted during the procedure. Patient tolerated the procedure well and did well.. Was able to ambulate passed gas. At that time patient was discharged home under stable condition. Patient was asked to follow up with primary care provider along with general surgery in about 1-2 days post discharge. Vital Signs/Physical Exam: Temp Pulse Resp BP Pulse Ox 97.1 F 57 20 124/75 97 08/28/18 12:57 08/28/18 12:57 08/28/18 12:57 08/28/18 12:57 08/28/18 08:00 General: Alert, In no apparent distress HEENT: Atraumatic, PERRLA, EOMI Neck: Supple, JVD not distended Respiratory: Clear to auscultation bilaterally, Normal air movement Cardiovascular: Regular rate/rhythm, Normal S1 S2 Gastrointestinal: Normal bowel sounds, No tenderness Musculoskeletal: No tenderness Integumentary: No rashes Neurological: Normal speech, Normal tone, Normal affect Lymphatics: No axilla or inguinal lymphadenopathy Laboratory Data at Discharge: WBC 6.9 K/uL (4.3-10.9) D 08/28/18 05:45 Hgb 15.1 g/dL (13.6-17.9) 08/28/18 05:45 Hct 45.0 % (39.6-49.0) 08/28/18 05:45 Plt Count 200 K/uL (152-406) 08/28/18 05:45 PT 11.4 SECONDS (9.5-12.5) 08/26/18 22:25 INR 0.97 08/26/18 22:25 Sodium 142 mmol/L (136-145) 08/28/18 05:44 Potassium 3.9 mmol/L (3.5-5.1) 08/28/18 05:44 BUN 7 mg/dL (7-18) 08/28/18 05:44 Creatinine 1.13 mg/dL (0.55-1.3) 08/28/18 05:44 Glucose 93 mg/dL (74-106) 08/28/18 05:44 Magnesium 2.0 mg/dL (1.8-2.4) 08/26/18 22:25 Total Bilirubin 0.8 mg/dL (0.2-1.0) 08/28/18 05:44 AST 24 U/L (15-37) 08/28/18 05:44 ALT 66 U/L (12-78) 08/28/18 05:44 Alkaline Phosphatase 113 U/L (45-117) 08/28/18 05:44 Amylase 68 U/L (25-115) 08/28/18 05:44 Lipase 177 U/L (73-393) 08/28/18 05:44 Home Medications: Codeine/APAP [Tylenol W/Codeine #3 tab] 1 tab PO Q4H PRN #40 tab 08/28/18 New Medications: Codeine/APAP [Tylenol W/Codeine #3 tab] 1 tab PO Q4H PRN #40 tab PRN Reason: Pain Scale 5-7 (Moderate) Patient Discharge Instructions: Please f.u with PCP and Surgery in 1 to 2 week post discharge. No New medication Diet: Regular Activity: Ad otis Followup: Darshan Greenberg MD [ACTIVE - CAN ADMIT] - 1 Week
[2018-08-28 18:01] VITALS: BP 106/65; TEMP 98.5
--- NOTE | 2018-08-29 02:14 | OP ---
Date of Procedure: 08/28/2018 Surgeon: Darshan Greenberg MD Calender Tender: KHUSHBU Poole. Preoperative Diagnosis: Acute cholecystitis and cholelithiasis. Postoperative Diagnosis: Acute cholecystitis and cholelithiasis. Procedure: Laparoscopic cholecystectomy. Estimated Blood Loss: Minimal. Specimen: Gallbladder. Findings: As above. Anesthesia: General. Complications: None. Disposition: The patient tolerated the procedure in stable condition, taken to recovery in good gene ral condition. Description Of Procedure: The patient was brought to the OR, placed in supine position. General ane sthesia was begun. The patient was prepped and draped in the sterile fashion. Marcaine 0.25% was in filtrated locally. A 15-blade was used to make a 1 cm infraumbilical midline incision. Subcutaneous tissue was divided. The fascia was identified and divided. A #1 Vicryl stay suture was placed. Pe ritoneal cavity was entered with sharp and blunt dissection. The gallbladder was difficult at first. A 12-mm trocar was placed in the epigastrium and I was concerned about scar tissue. However, once we put the epigastrium 12-mm trocar, it was clearly visualized that the peritoneum was just thickened . There was no scar tissue noted in this area. So, two 12-mm trocars were placed and two 5-mm troca rs were placed in the right subcostal region. Laparoscopy revealed acute inflammation of the gallbla dder. Fundus retracted superiorly. Infundibulum was identified and retracted inferolaterally. Cyst ic duct and cystic artery were clearly identified with blunt dissection. Clips were placed. Both st ructures were divided. Cautery was used to remove the gallbladder from the liver bed. Bleeding in t he liver bed was controlled with cautery. The gallbladder was retrieved through the umbilicus via an EndoCatch bag. Right upper quadrant was irrigated. Effluent was clear. No evidence of bleeding or bile leakage appreciated. Subsequently, all trocars were removed under direct vision. Stay sutures were tied to each other to reapproximate the fascial defect. Subcutaneous wounds were irrigated. B leeding was controlled with cautery. A 3-0 chromic was used to reapproximate the subcutaneous tissue , and naun were used to close the skin. Sterile dressing was applied. The patient was awakened a nd taken to recovery in good general condition. /MODL Voice ID: [id number] Report ID: [id number]
== END 2018-08-28 17:36 | disposition home or self-care (01) ==
LOC: ER 22:02 → ERHOLD 08-27 00:51 → 2ND 08-27 01:57
PROVIDERS: ADMIT Internal Medicine; ATTEND Internal Medicine
PROC: 0FT44ZZ Resection of Gallbladder, Percutaneous Endoscopic Approach (ICD-10-PCS; principal; 2018-08-28 12:30)
DX: K80.00 Calculus of gallbladder with acute cholecystitis without obstruction (principal); F17.210 Nicotine dependence, cigarettes, uncomplicated
CPT/HCPCS: 36415; 71045; 74177; 74181; 76705; 80048; 80053; 80076; 82150; 82248; 83690; 83735; 83880; 84484; 85025; 85610; 88304; 93005; 96361; 96365; 96375; 99285; G0378; J0744; J1100; J2250; J2405; J2543; J2704; J3010; J7030; Q9967